=== PATIENT | female | born 1960 | race Caucasian/White ===

== ENCOUNTER 2018-05-08 20:52 | Observation (INO) ==
[2018-05-08] MEDS ORDERED: NS 1000 ML 1,000 ML IV ONE (21:38)
[2018-05-08] MEDS ORDERED: ZOFRAN INJ 4 MG VIAL IVP ONE (21:38)
--- NOTE | 2018-05-08 21:42 | DR.NAUSEAF ---
HPI - Time Seen Time seen: 21:38 - Primary Care Physician Primary Care Physician: NFD - Complaints Chief Complaint Doctors Comments: Patient is complaining of stomach cramps since yesterday with diarrhea, vomitingx2 and not being able to keep anything down today. States she only had soup, yogart but a small amount. States her diarrhea is clear watery with pain yesterday 10 of 10 but today the pain is 5 of 10. She denies dysuria but had burning when she has diarrhea. THinks she is dehydrated because her hands has been cramping up. She denies tobacco or alcohol usage. Chief Complaint:: "O/S YESTERDAY WITH STOMACH CRAMPS, TOOK GAS PILLS FOR THE CRAMPS. THIS AM AT 0730, STARTED WITH DIARRHEA, TOOK IMMODIUM. THEN TOOK LAXATIVE TO MAYBE GET RID OF INFECTION. NOW I AM STILL HAVE DIARRHEA, IT HAS NO COLOR JUST LIKE WATER." Self Treatment fo Chief Complaint: GAS PILLS, IMMODIUM, LAXATIVE - Reviewed Nurses Notes Reviewed: Yes - Source History Provided: Patient - Mode of Arrival Mode of Arrival: Ambulatory - Timing Onset of Chief Complaint: 05/07/18 - Context Onset: Spontaneous Recent: None Possible Ingestion: Unknown : No History of: None - Quality Quality: Bilious - Associated Signs and Symptoms Abdominal Pain Quality: Cramping Abdominal Pain Location: Diffuse, Epigastric Symptoms: Abdominal Pain, Diarrhea PMH - PMH Past Medical History: Yes Past Medical History: GERD, Hypertension Past Surgical History: No - Family History History of Family Medical Conditions: No - Social History Does patient currently use any type of tobacco product: No Have you used tobacco products in the last 12 months: No Type of Tobacco Use: None Does any household member use tobacco: No Alcohol Use: None Do you use any recreational Drugs:: No - infectious screening Have you traveled outside the country in the last 6 months?: No Isolation: Standard ROS - Review of Systems Constitutional: No Symptoms Reported Eyes: No Symptoms Reported ENTM: No Symptoms Reported Respiratoy: No Symptoms Reported Cardiovascular: No Symptoms Reported Gastrointestinal/Abdominal: No Symptoms Reported, Abdominal Pain, Diarrhea, Nausea, Vomiting Genitourinary: No Symptoms Reported Neurological: No Symptoms Reported Musculoskeletal: No Symptoms Reported Integumentary: No Symptoms Reported Hematologic/Lymphatic: No Symptoms Reported Endocrine: No Symptoms Reported Psychiatric: No Symptoms Reported PE - General Limitations: No Limitations General Appearance: Alert, In Distress (moderate) - Head Head Exam: Normal Inspection, Atraumatic, Normocephalic - Eyes Eye exam: Normal Appearance, PERRL, EOMI. negative: Scleral Icterus, Conjunctival Injection, Nystagmus, Miosis, Mydrasis, Periorbital Swelling, Periorbital Tenderness, Other - ENT ENT Exam: Normal Exam, Normal Oropharynx, Normal External Ear Exam, Mucous Memb ranes Moist, TM's Normal Bilaterally - Neck Neck Exam: Normal Inspection, Full ROM, Trachea Midline - Chest Chest Inspection: Normal Inspection, Symmetric Chest Wall Rise - Respiratory Respiratory Exam: Normal Lung Sounds Bilat Respiratory Exam: Bilateral Clear to Auscultation - Cardiovascular Cardiovascular Exam: Regular Rate, Normal Rhythm, Normal Heart Sounds - Abdominal Exam Abdominal Exam: Normal Inspection, Normal Bowel Sounds, Soft Abdominal Tenderness: RUQ, Epigastrium, Mild - Rectal Rectal Exam: Deferred - External Exam: Female: Deferred : Speculum Exam (Female): Deferred : Bimanual Exam (female): Deferred - Extremities Extremities Exam: Normal Inspection, Full ROM, Normal Capillary Refill. negative: Tenderness, Edema, Joint Swelling, Calf Tenderness, Other - Back Back Exam: Normal Inspection, Full ROM. negative: Tenderness, (R) CVA Tenderness, (L) CVA Tenderness, Muscle Spasm, Paraspinal Tenderness, Vertebral Tenderness, Rashes, (R) Sciatic Notch Tenderness, (L) Sciatic Notch Tendern, (R) Straight Leg Raise, (L) Straight Leg Raise, Other - Neurologic Neurological Exam: Alert, Oriented X3, CN II-XII Intact, Normal Gait, Reflexes Normal - Psychiatric Psychiatric Exam: Normal Affect, Normal Mood - Skin Skin Exam: Warm, Dry, Intact, Normal Color - Vital Signs Vitals: Temperature 96.5 F Pulse Rate 80 Respiratory Rate 18 Blood Pressure 120/70 O2 Sat by Pulse Oximetry 100 Course - Reevaluation 1st: - Consultation Called: 00:39 Call Returned: 00:39 () - Education/Counseling Education/Counseling: Patient, Family Educated On: Treatment, Diagnosis, Needs for Follow Up ROR - Labs Reviewed Laboratory Results Reviewed?: Yes (All labs and x-rays results reviewed and discussed with patient) Result Diagrams: 05/08/18 21:50 05/08/18 21:50 - XRAY XRAY Interpreted by: Radiologist (CT abdomen: Wall thickening distal transverse and descending colon suggestive infectious or inflammatory colitis. Small bilateral lower love nodules. Small hiatal ) - Labs Reviewed Laboratory: WBC 11.1 X10^3/uL (3.6-10.0) H 05/08/18 21:50 RBC 5.16 X10^6/uL (3.5-5.4) 05/08/18 21:50 Hgb 14.6 g/dL (12.0-16.0) 05/08/18 21:50 Hct 43.4 % (36.0-47.0) 05/08/18 21:50 MCV 84.1 fL (80.0-100.0) 05/08/18 21:50 MCH 28.2 pg (27.0-34.0) 05/08/18 21:50 MCHC 33.6 g/dL (33.0-35.0) 05/08/18 21:50 RDW 13.2 % (11.6-16.5) 05/08/18 21:50 Plt Count 207 X10^3/uL (150.0-450.0) 05/08/18 21:50 Plt Count Comment Adequate (ADEQUATE) 05/08/18 21:50 MPV 7.8 fL (7.4-11.0) 05/08/18 21:50 Neut % (Auto) 90.1 % (42.0-75.0) H 05/08/18 21:50 Lymph % (Auto) 4.7 % (21.0-51.0) L 05/08/18 21:50 [place] % (Auto) 4.8 % (0.0-13.0) 05/08/18 21:50 Eos % (Auto) 0.1 % (0.9-2.9) L 05/08/18 21:50 Baso % (Auto) 0.3 % (0.2-1.0) 05/08/18 21:50 Neut # (Auto) 10.0 x10^3/uL (2.2-4.8) H 05/08/18 21:50 Lymph # (Auto) 0.5 X10^3/uL (1.3-2.9) L 05/08/18 21:50 [place] # (Auto) 0.5 x10^3/uL (0.3-0.8) 05/08/18 21:50 Eos # (Auto) 0.0 x10^3/uL (0.0-0.2) 05/08/18 21:50 Baso # (Auto) 0.0 X10^3/uL (0.0-0.1) 05/08/18 21:50 Absolute Nucleated RBC 0.1 /100WBC 05/08/18 21:50 Total Counted 100 05/08/18 21:50 Neutrophils % (Manual) 89 % (39-76) H 05/08/18 21:50 Band Neutrophils % 3 % (0-10) 05/08/18 21:50 Lymphocytes % (Manual) 2 % (13-43) L 05/08/18 21:50 Monocytes % (Manual) 6 % (4-9) 05/08/18 21:50 Plt Morphology Comment Normal (NORMAL) 05/08/18 21:50 RBC Morphology Normal (NORMAL) 05/08/18 21:50 Sodium 139 mmol/L (136-145) 05/08/18 21:50 Corrected Sodium TNP 05/08/18 21:50 Potassium 3.8 mmol/L (3.5-5.1) 05/08/18 21:50 Chloride 103 mmol/L (98-107) 05/08/18 21:50 Carbon Dioxide 26.4 mmol/L (21-32) 05/08/18 21:50 BUN 8 mg/dL (7-18) 05/08/18 21:50 Creatinine 0.82 mg/dL (0.55-1.02) 05/08/18 21:50 Est GFR (MDRD) Af Amer > 60 (>60) 05/08/18 21:50 Est GFR (MDRD) Non-Af > 60 (>60) 05/08/18 21:50 Glucose 110 mg/dL (65-99) H 05/08/18 21:50 Calcium 9.3 mg/dL (8.5-10.1) 05/08/18 21:50 Corrected Calcium TNP 05/08/18 21:50 Total Bilirubin 0.60 mg/dL (0.2-1.0) 05/08/18 21:50 AST 17 Units/L (15-37) 05/08/18 21:50 ALT 27 Units/L (12-78) 05/08/18 21:50 Alkaline Phosphatase 106 Units/L (46-116) 05/08/18 21:50 Total Protein 7.5 g/dL (6.4-8.2) 05/08/18 21:50 Albumin 3.9 g/dL (3.4-5.0) 05/08/18 21:50 Globulin 3.6 g/dL (2.5-4.5) 05/08/18 21:50 Albumin/Globulin Ratio 1.1 Ratio (1.1-2.1) 05/08/18 21:50 Amylase 126 Units/L (25-115) H 05/08/18 21:50 Lipase 560 Units/L (73-393) H 05/08/18 21:50 Specimen Type Clean catch urine 05/08/18 23:34 Urine Color Yellow (YELLOW) 05/08/18 23:34 Urine Appearance Slightly hazy (CLEAR) 05/08/18 23:34 Urine pH 6.5 (5.0 - 8.0) 05/08/18 23:34 Ur Specific [place] 1.010 (1.000-1.030) 05/08/18 23:34 Urine Protein 1+ (NEGATIVE) 05/08/18 23:34 Urine Glucose (UA) Negative (NEGATIVE) 05/08/18 23:34 Urine Ketones 3+ (NEGATIVE) 05/08/18 23:34 Urine Occult Blood 2+ (NEGATIVE) 05/08/18 23:34 Urine Nitrite Negative (NEGATIVE) 05/08/18 23:34 Urine Bilirubin Negative (NEGATIVE) 05/08/18 23:34 Urine Urobilinogen Normal (NORMAL) 05/08/18 23:34 Ur Leukocyte Esterase Negative (NEGATIVE) 05/08/18 23:34 Urine RBC 5-10 /HPF (NONE SEEN) 05/08/18 23:34 Urine WBC None seen /HPF (NONE SEEN) 05/08/18 23:34 Ur Squamous Epith Cells Few /HPF (NEGATIVE) 05/08/18 23:34 Urine Bacteria Negative /HPF (NEGATIVE) 05/08/18 23:34 Urine Mucus Moderate /HPF (NEGATIVE) 05/08/18 23:34 Ur Culture Indicated? No/not indicated 05/08/18 23:34 - Diagnosis Discharge Problem: Abdominal pain in female, Colitis, Gastroenteritis, Pulmonary nodule, Hyperglycemia, Hiatal hernia Pancreatitis Qualifiers: Acute pancreatitis complication: unspecified - Discharge Plan Disposition: ADMITTED INPATIENT Condition: Stable - Follow ups/Referrals Follow ups/Referrals: NFD,None [Primary Care Provider] - 3 days - Instructions
[2018-05-08] MEDS ORDERED: NS 1000 ML 1,000 ML ONE (21:47)
[2018-05-08] MEDS ORDERED: ZOFRAN INJ 4 MG VIAL ONE (21:48)
[2018-05-08 21:54] LABS: BASOPHILS % (AUTO) 0.3 % (0.2-1.0); EOSINOPHILS % (AUTO) 0.1 % (0.9-2.9); HEMATOCRIT 43.4 % (36.0-47.0); HEMOGLOBIN 14.6 g/dL (12.0-16.0); LYMPHOCYTES # (AUTO) 0.5 X10^3/uL (1.3-2.9); LYMPHOCYTES % (AUTO) 4.7 % (21.0-51.0); MEAN CORPUSCULAR HEMOGLOBIN 28.2 pg (27.0-34.0); MEAN CORPUSCULAR HGB CONC 33.6 g/dL (33.0-35.0); MEAN CORPUSCULAR VOLUME 84.1 fL (80.0-100.0); MEAN PLATELET VOLUME 7.8 fL (7.4-11.0); MONOCYTES # (AUTO) 0.5 x10^3/uL (0.3-0.8); MONOCYTES % (AUTO) 4.8 % (0.0-13.0); NEUTROPHILS % (AUTO) 90.1 % (42.0-75.0); PLATELET COUNT 207 X10^3/uL (150.0-450.0); RED BLOOD COUNT 5.16 X10^6/uL (3.5-5.4); RED CELL DISTRIBUTION WIDTH 13.2 % (11.6-16.5); WHITE BLOOD COUNT 11.1 X10^3/uL (3.6-10.0)
[2018-05-08 22:11] LABS: ALANINE AMINOTRANSFERASE 27 Units/L (12-78); ALBUMIN 3.9 g/dL (3.4-5.0); ALKALINE PHOSPHATASE 106 Units/L (46-116); AMYLASE 126 Units/L (25-115); ASPARTATE AMINO TRANSFERASE 17 Units/L (15-37); BLOOD UREA NITROGEN 8 mg/dL (7-18); CALCIUM 9.3 mg/dL (8.5-10.1); CARBON DIOXIDE 26.4 mmol/L (21-32); CHLORIDE 103 mmol/L (98-107); CREATININE 0.82 mg/dL (0.55-1.02); LIPASE 560 Units/L (73-393); SODIUM 139 mmol/L (136-145); TOTAL PROTEIN 7.5 g/dL (6.4-8.2); eGFR NON BLACK RACES > 60 (>60)
[2018-05-08 23:01] LABS: BAND NEUTROPHILS % 3 % (0-10); PLATELET MORPHOLOGY COMMENT NORMAL (NORMAL)
[2018-05-08 23:49] LABS: BILIRUBIN,URINE NEGATIVE (NEGATIVE); BLOOD/HEMOGLOBIN,URINE 2+ (NEGATIVE); GLUCOSE, URINE NEGATIVE (NEGATIVE); KETONES,URINE 3+ (NEGATIVE); LEUKOCYTE ESTERASE ,URINE NEGATIVE (NEGATIVE); NITRITES,URINE NEGATIVE (NEGATIVE); PH,URINE 6.5 (5.0 - 8.0); PROTEIN,URINE 1+ (NEGATIVE); UROBILINOGEN,URINE NORMAL (NORMAL)
[2018-05-08 23:57] LABS: APPEARANCE,URINE SLIGHTLY HAZY (CLEAR); COLOR,URINE YELLOW (YELLOW)
[2018-05-09] LABS: BACTERIA,URINE NEGATIVE /HPF (NEGATIVE); MUCUS,URINE MODERATE /HPF (NEGATIVE); SQUAMOUS EPITHELIAL CELL,UR FEW /HPF (NEGATIVE)
[2018-05-09] MEDS ORDERED: ROCEPHIN VIAL 500 MG IVP ONE (00:01)
[2018-05-09] MEDS ORDERED: ROCEPHIN VIAL 1 GRAM IVP ONE (00:11)
[2018-05-09] MEDS ORDERED: ROCEPHIN VIAL 1 GRAM ONE (00:42)
[2018-05-09] MEDS ORDERED: PEPCID 20 MG IV PREMIX* 20 MG/50 ML BAG IV PRN (00:42)
[2018-05-09] MEDS ORDERED: MORPHINE SULFATE INJ 2 MG INJ ONE (01:22)
[2018-05-09] MEDS: MORPHINE SULFATE INJ 2 MG INJ IVP PRN ×3 (01:23→20:54)
[2018-05-09] MEDS ORDERED: D5 1/2 NS + KCL 20 MEQ/L 1,000 ML IV ONE (02:31)
[2018-05-09] MEDS: D5 1/2 NS + KCL 20 MEQ/L 1,000 ML IV SCH ×4 (02:33→21:12)
[2018-05-09 05:24] LABS: BASOPHILS % (AUTO) 0.2 % (0.2-1.0); EOSINOPHILS % (AUTO) 0.1 % (0.9-2.9); HEMATOCRIT 37.4 % (36.0-47.0); HEMOGLOBIN 12.7 g/dL (12.0-16.0); LYMPHOCYTES # (AUTO) 0.7 X10^3/uL (1.3-2.9); LYMPHOCYTES % (AUTO) 9.5 % (21.0-51.0); MEAN CORPUSCULAR HEMOGLOBIN 28.5 pg (27.0-34.0); MEAN CORPUSCULAR HGB CONC 34.1 g/dL (33.0-35.0); MEAN CORPUSCULAR VOLUME 83.6 fL (80.0-100.0); MEAN PLATELET VOLUME 8.4 fL (7.4-11.0); MONOCYTES # (AUTO) 0.4 x10^3/uL (0.3-0.8); MONOCYTES % (AUTO) 5.5 % (0.0-13.0); NEUTROPHILS # (AUTO) 6.2 x10^3/uL (2.2-4.8); NEUTROPHILS % (AUTO) 84.7 % (42.0-75.0); PLATELET COUNT 177 X10^3/uL (150.0-450.0); RED BLOOD COUNT 4.47 X10^6/uL (3.5-5.4); RED CELL DISTRIBUTION WIDTH 13.3 % (11.6-16.5); WHITE BLOOD COUNT 7.3 X10^3/uL (3.6-10.0)
[2018-05-09 05:37] LABS: ALANINE AMINOTRANSFERASE 22 Units/L (12-78); ALBUMIN 2.9 g/dL (3.4-5.0); ALKALINE PHOSPHATASE 82 Units/L (46-116); AMYLASE 81 Units/L (25-115); ASPARTATE AMINO TRANSFERASE 16 Units/L (15-37); BLOOD UREA NITROGEN 8 mg/dL (7-18); CALCIUM 7.9 mg/dL (8.5-10.1); CHLORIDE 107 mmol/L (98-107); COR CA(FOR HYPOALB) 8.8 mg/dL (8.5-10.1); COR NA(FOR HYPERGLY) 140 mmol/L (136-145); CREATININE 0.65 mg/dL (0.55-1.02); LIPASE 201 Units/L (73-393); SODIUM 140 mmol/L (136-145); TOTAL PROTEIN 6.1 g/dL (6.4-8.2); eGFR NON BLACK RACES > 60 (>60)
[2018-05-09] MEDS ORDERED: NORCO 5/325 MG TAB ONE (11:08)
[2018-05-09] MEDS: NORCO 5/325 MG TAB PO PRN ×2 (11:16→23:32)
--- NOTE | 2018-05-09 11:29 | DR.H&P ---
H&P - History & Physical for Day of: H&P Date: 05/09/18 - Chief Complaint Chief Complaint: ABDOMINAL PAIN, N/V - History of Present Illness History of Present Illness: 58 F ER ADMISSION WITH CO stomach cramps since yesterday with diarrhea, vomitingx2 and not being able to keep anything down today. States she only had soup, yogart but a small amount. States her diarrhea is clear watery with pain yesterday 10 of 10 but today the pain is 5 of 10. She denies dysuria but had burning when she has diarrhea. Thinks she is dehydrated because her hands has been cramping up. She denies tobacco or alcohol usage. PT HAD ELEVATED AMYLASE AND LIPASE IN ER. PT ADMITTED FOR TREATMENT OF ACUTE ILLNESS. - Past Medical History Past Medical History: GERD, Hypertension - Social History Does patient currently use any type of tobacco product: No Have you used tobacco products in the last 12 months: No Type of Tobacco Use: None Does any household member use tobacco: No Alcohol Use: Rarely Drug Use: None - Medications Home Medications: No Known Drug Allergies Allergy (Verified 05/08/18 21:09) CONTINUE taking the following medications lisinopril 10 mg PO QDAY 05/08/18 [History] - Review of Systems Constitutional: No Symptoms Reported ENT: No Symptoms Reported Respiratory: No Symptoms Reported Gastrointestinal: Nausea, Vomiting, Abdominal Pain, Diarrhea Genitourinary: No Symptoms Reported Musculoskeletal: No Symptoms Reported Skin: No Symptoms Reported Neurological: No Symptoms Reported - Physical Exam Vital Signs: Temperature 99.4 F Pulse Rate [Left Brachial] 90 Pulse Rate [Apical] 81 Pulse Rate 80 Respiratory Rate 20 Blood Pressure [Left Arm] 107/64 Blood Pressure 120/70 O2 Sat by Pulse Oximetry 95 Oriented: Normal Eyes: Normal Ear: Normal Nose: Normal Throat: Normal Respiratory: Clear Throughout Cardiovascular: Normal : Normal Auscultation: Bowel Sounds: Normal Palpation: Normal Tenderness: RUQ, LUQ, Epigastric Skin: Normal Musculoskeletal: Normal Psychiatric: Normal Speech Pattern: Clear, Appropriate - Assessment/Plan (1) Pancreatitis Qualifiers: Acute pancreatitis complication: unspecified Status: Acute Plan: ADMIT, NPO, GENTLE IV HYDRATION. PAIN AND NAUSEA CONTROL, REPEAT AM AMYLASE AND LIPASE. VERIFY AND RESUME HOME MEDICATION. BP CONTROL (2) Gastroenteritis Status: Acute - Allergies Allergies/Adverse Reactions: Allergies Allergy/AdvReac Type Severity Reaction Status Date / Time No Known Drug Allergies Allergy Verified 05/08/18 21:09
[2018-05-09] MEDS: ZOFRAN INJ 4 MG VIAL IVP PRN (20:55)
[2018-05-10] MEDS: D5 1/2 NS + KCL 20 MEQ/L 1,000 ML IV SCH ×2 (02:12→10:11)
[2018-05-10 06:08] LABS: BASOPHILS % (AUTO) 0.4 % (0.2-1.0); EOSINOPHILS # (AUTO) 0.2 x10^3/uL (0.0-0.2); HEMATOCRIT 37.1 % (36.0-47.0); HEMOGLOBIN 12.6 g/dL (12.0-16.0); LYMPHOCYTES % (AUTO) 18.5 % (21.0-51.0); MEAN CORPUSCULAR HEMOGLOBIN 28.4 pg (27.0-34.0); MEAN CORPUSCULAR HGB CONC 33.9 g/dL (33.0-35.0); MEAN CORPUSCULAR VOLUME 83.6 fL (80.0-100.0); MEAN PLATELET VOLUME 8.3 fL (7.4-11.0); MONOCYTES # (AUTO) 0.5 x10^3/uL (0.3-0.8); MONOCYTES % (AUTO) 9.5 % (0.0-13.0); NEUTROPHILS # (AUTO) 3.6 x10^3/uL (2.2-4.8); NEUTROPHILS % (AUTO) 68.6 % (42.0-75.0); PLATELET COUNT 161 X10^3/uL (150.0-450.0); RED BLOOD COUNT 4.44 X10^6/uL (3.5-5.4); RED CELL DISTRIBUTION WIDTH 13.1 % (11.6-16.5); WHITE BLOOD COUNT 5.3 X10^3/uL (3.6-10.0)
[2018-05-10 06:18] LABS: ALANINE AMINOTRANSFERASE 24 Units/L (12-78); ALBUMIN 2.8 g/dL (3.4-5.0); ALKALINE PHOSPHATASE 80 Units/L (46-116); ASPARTATE AMINO TRANSFERASE 14 Units/L (15-37); BLOOD UREA NITROGEN 4 mg/dL (7-18); CALCIUM 8.3 mg/dL (8.5-10.1); CARBON DIOXIDE 27.8 mmol/L (21-32); CHLORIDE 106 mmol/L (98-107); COR CA(FOR HYPOALB) 9.3 mg/dL (8.5-10.1); CREATININE 0.69 mg/dL (0.55-1.02); SODIUM 140 mmol/L (136-145); eGFR NON BLACK RACES > 60 (>60)
[2018-05-10] MEDS: ZOFRAN INJ 4 MG VIAL IVP PRN (08:05)
[2018-05-10] MEDS: MORPHINE SULFATE INJ 2 MG INJ IVP PRN (10:32)
[2018-05-10] MEDS ORDERED: LIBRAX PO PRN (12:24)
[2018-05-10 12:46] VITALS: BMI 25.9
[2018-05-10 13:46] VITALS: BP 129/72
[2018-05-10 14:27] LABS: STOOL FOR WBC POSITIVE (NEGATIVE)
[2018-05-10 14:46] LABS: CRYPTOSPORIDIUM PARVUM ANTIGEN NEGATIVE (NEGATIVE); GIARDIA LAMBLIA ANTIGEN NEGATIVE (NEGATIVE)
[2018-05-10] MEDS ORDERED: ZITHROMAX INJ 500 MG VIAL 500 MG in NS 250 ML IV 250 ML IV SCH ×2 (15:00→16:00)
[2018-05-10] MEDS ORDERED: LEVAQUIN PREMIX IV 750 MG 750 MG/150 ML BAG IV SCH (16:00)
== END 2018-05-10 17:27 | disposition home or self-care (01) ==
LOC: ER 20:58 → MED/SURG 20:58
PROVIDERS: ADMIT Internal Medicine; ATTEND Internal Medicine
DX: R91.1 Solitary pulmonary nodule; R11.2 Nausea with vomiting, unspecified; R10.84 Generalized abdominal pain; K52.89 Other specified noninfective gastroenteritis and colitis; K85.80 Other acute pancreatitis without necrosis or infection; K21.9 Gastro-esophageal reflux disease without esophagitis; K44.9 Diaphragmatic hernia without obstruction or gangrene; R19.7 Diarrhea, unspecified; I10 Essential (primary) hypertension; R73.09 Other abnormal glucose; K92.1 Melena
CPT/HCPCS: 36415; 74176; 80053; 81001; 82150; 82270; 83630; 83690; 85025; 87045; 87328; 87329; 87427; 87449; 87493; 87899; 96365; 96374; 96375; 99218; 99283; 99284; A4216; A4222; S0028; G0378; J0696; J1956; J2270; J2405; J7030